=== PATIENT | male | born 1955 | race Caucasian/White ===

== ENCOUNTER 2017-02-28 22:01 | Observation (INO) | payer MEDICARE ==
[~2017-02-28] VITALS: Ht 177.8 cm; Wt 80.7 kg
[~2017-02-28 22:01] MED LIST: ARICEPT23 MG PO; LEVAQUIN750 MG PO; ZYRTEC10 MG PO
== END 2017-03-03 11:40 | disposition home or self-care (01) ==
LOC: ER 22:01 → MED 03-01 04:42
PROVIDERS: ADMIT Internal Medicine
DX: A08.4 Viral intestinal infection, unspecified (principal); N17.9 Acute kidney failure, unspecified; E86.1 Hypovolemia; E83.42 Hypomagnesemia; K80.20 Calculus of gallbladder without cholecystitis without obstruction; F03.90 Unspecified dementia, unspecified severity, without behavioral disturbance, psychotic disturbance, mood disturbance, and anxiety; N20.0 Calculus of kidney; Z79.899 Other long term (current) drug therapy
CPT/HCPCS: 36415; 87507; 96365; 96366; 96367; 96372; 96375; G0378; J0696; J1650

== ENCOUNTER 2017-02-28 22:01 | Emergency (ER) | payer MEDICARE | END 2017-03-01 04:41 | disposition critical access hospital (66) | LOC: ER 22:01 | DX: N41.9 Inflammatory disease of prostate, unspecified (principal) | CPT/HCPCS: 96361; 96365; 96375 ==